=== PATIENT | male | born 1960 | race Caucasian/White ===

== ENCOUNTER 2016-10-05 06:40 | Emergency (ER) | payer MEDICAID ==
[~2016-10-05] VITALS: Ht 190.5 cm; Wt 94.3 kg
[~2016-10-05 06:40] MED LIST: GABA-338 PO; GLIM1TAB2 PO; LISI10TA7 PO; METF10002 PO
[2016-10-05 06:41] VITALS: Ht 190.5 cm; Wt 94.3 kg
--- OUTSIDE RECORDS SUMMARY | 2016-10-05 06:45 | XMS REPORT | Continuity of Care Document ---
Author Author [facility] Organization [facility] Address Unknown Phone Unavailable Allergies Active Description Code Type Severity Reaction Onset Reported/Identified Relationship to Patient Clinical Status Yes amitriptyline amitriptyline Drug Allergy Unknown UNKNOWN 09/20/2016 Yes duloxetine duloxetine Drug Allergy Unknown UNKNOWN 09/20/2016 Yes ketorolac ketorolac Drug Allergy Unknown UNKNOWN 09/20/2016 Yes pregabalin pregabalin Drug Allergy Unknown UNKNOWN 09/20/2016 Medications Problems Procedures Results Encounters ACCT No. Visit Date/Time Discharge Status Pt. Type Provider Facility Loc./Unit Complaint [id number] 09/20/2016 20:35:00 2016 21:29:00 DIS Emergency Shawna GARAY, Yani Velez [facility]
--- OUTSIDE RECORDS SUMMARY | 2016-10-05 06:45 | XMS REPORT | Continuity of Care Document ---
Author Author [facility] Organization [facility] Address Unknown Phone Unavailable Care Team Providers Care Shovel Logger Name Role Phone OTHER Primary Care Physician [phone] Insurance Providers Guarantor Bárbara Cantu Address [address] [place] [address] Email DENIED 09-17-16 Payer Medicaid Out Of State Policy Number [id number] Subscriber's Name Bárbara Cantu Relationship 18 Self Chief Complaint and Reason for Visit Chief Complaint Lower Extremity Pain Reason for Visit [id number] Problems Past Problems Medical Problem Onset Date 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 Unknown Medications Current Home Medications Medication Dose Units Route Directions Days Qty Instructions Start Date Gabapentin 300 Mg Capsule 3 Cap Oral Three Times A Day 09/17/16 Glimepiride 1 Mg Tablet 4 Mg Oral Give With Breakfast BEST TAKEN WITH BREAKFAST. 09/17/16 Lisinopril 10 Mg Tablet 10 Mg Oral Daily for Hypertension Metformin Hcl 1,000 Mg Tablet 1 Tab Oral Twice Daily With Meals Take one tablet, by mouth, twice daily with meals 09/17/16 Social History Query Response Start Date Stop Date Smoking Status Current every day smoker Hospital Discharge Instructions No hospital discharge instructions. Plan of Care Discharge Date 09/17/16 11:18pm Disposition 01 DISCHARGED HOME, SELF-CARE Condition at Discharge Stable Instructions/Education Provided Diabetic Peripheral Neuropathy (ED) Prescriptions See Medication Section Referrals OTHER Functional Status No functional status results. Allergies, Adverse Reactions, Alerts Allergen Type Severity Reaction Status Last Updated Amitriptyline Allergy Unknown Active 09/17/16 Ketorolac Allergy Unknown Active 09/17/16 Duloxetine Allergy Unknown Active 09/17/16 Pregabalin Allergy Unknown Active 09/17/16 Immunizations Query Response on File Recorded Date/Time Influenza Vaccine Hx JULY 2015 09/17/16 11:00pm Vital Signs Acute Vital Signs Vital Response Date/Time Temperature (Fahrenheit) 98.2 deg F (96.8 - 99.1) 09/17/2016 11:18pm Temperature (Calculated Celsius) 36.17579 degrees C (36.0 - 37.3) 09/17/2016 11:18pm Pulse Rate (adult) 102 bpm (60 - 100) 09/17/2016 11:18pm Respiratory Rate 18 breaths/min (10 - 20) 09/17/2016 11:18pm O2 Sat by Pulse Oximetry 97 % (90 - 100) 09/17/2016 11:18pm Blood Pressure 150/98 mm Hg 09/17/2016 11:18pm Height (Feet) 6 feet 09/17/2016 9:43pm Height (Inches) 3.00 inches 09/17/2016 9:43pm Weight (Kilograms) 103.600 kg 09/17/2016 9:43pm Body Mass Index (BMI) 28.0 09/17/2016 9:43pm Results No known relevant diagnostic tests, laboratory data and/or discharge summary. Procedures No known history of procedures. Encounters Encounter Location Arrival/Admit Date Discharge/Depart Date Attending Provider Departed Emergency Room [facility] 09/17/16 9:11pm 09/17/16 11: 18pm DANIELA CONTEH DO Recent Diagnosis
--- OUTSIDE RECORDS SUMMARY | 2016-10-05 07:07 | XMS REPORT | Continuity of Care Document ---
Author Author [facility] Organization [facility] Address Unknown Phone Unavailable Allergies Active Description [...] Status Pt. Type Provider Facility Loc./Unit Complaint [id number] 09/20/2016 20:35:00 2016 21:29:00 DIS Emergency Shawna GARAY, Yani Velez [facility]
--- NOTE | 2016-10-05 07:10 | NUR ---
PROVIDER DR. Daiana SOSA IN ROOM WITH PT.
[2016-10-05] MEDS ORDERED: HYDROMORPHONE 2mg/ml INJECTION IM ONE (07:15)
[2016-10-05] MEDS ORDERED: PROMETHAZINE 25 MG INJECTION IM ONE (07:15)
--- NOTE | 2016-10-05 07:15 | ERPDOC ---
Departure Disposition Decision Date: Oct 05, 2016 Disposition Decision Time: 07:15 Disposition: 01 DISCHARGED HOME, SELF-CARE Impression Impression Impression: Primary Impression: Diabetic neuropathy associated with type 2 diabetes mellitus Diabetes mellitus complication detail: diabetic polyneuropathy Qualified Codes: E11.42 - Type 2 diabetes mellitus with diabetic polyneuropathy Additional Impression: Degenerative disc disease, lumbar Severity: Moderate Condition: Stable Seen By: Physician only Referrals: OTHER (PCP) 1 Week Patient Instructions: Diabetic Peripheral Neuropathy (ED) Problems/Meds/Labs Reviewed?: Yes Medications reviewed and manag: Yes Additional Instructions: Home to rest. Fill prescription for [place] and use as needed. If you run out before your card comes, call or see your new primary care doctor about getting more medication -- the ER is not designed to provide keno terminal operator pain medications. Follow up care ordered?: Yes Mental Status: Alert, Oriented Scripts Hydrocodone/Acetaminophen ([place] 10-325 Tablet) 10-325 Tablet 1 TAB PO TID, #21 TAB 0 Refills Prov: MARGARETH SOSA MD 10/05/16 HPI - Lower Extremity General Chief Complaint: Lower Extremity Pain Stated Complaint: PAIN IN LEGS AND FEET Time Seen by Provider: 06:59 Source: patient, RN notes reviewed, old records Exam Limitations: no limitations HPI - Lower Extremity Initial Comments This patient with known history of diabetic neuropathy comes in to the ER complaining of severe pain in his lower legs and feet related to the neuropathy. He has recently moved to this area from [place] and is waiting for his Medicaid card to come through for [place]. He was seen here on 09/17/16 and then saw a new PCP -- Dr Hardwick on 09/21 and was given #21 [place] 10/325 at that time. He tried to make them last but is out. He did not know that getting a Medicaid card for [place] would take so long. He ran out of the last [place] 2 days ago and was unable to sleep at all the last 2 nights. Occurred At: home Onset/Timing: Gradual Pain/Severity Scale: Now & Worst: 10/10 Modifying Factors/Context: IMPROVES WITH: pain medication Hx of Similar Symptoms: Yes Quality: burning Allergies: Coded Allergies: amitriptyline (Verified Allergy, Unknown, 10/05/16) duloxetine (Verified Allergy, Unknown, 10/05/16) ketorolac (Verified Allergy, Unknown, 10/05/16) pregabalin (Verified Allergy, Unknown, 10/05/16) Past History Past Medical History Metabolic: diabetes, hypertension Cardiac: CAD Neurological: neuropathy Musculoskeletal: back pain Surgical History General: hernia, other (nose/cleft palate repair) Joint: other Social History Smoking Status: Current every day smoker Alcohol Intake: occasionally Sexuality: female partner Current Occupational Status: unemployed Record Review Pertinent history updated: Yes Review of Systems Constitutional Constitutional: appetite decrease, insomnia, night sweats, see HPI Eyes General: DENIES: pain Lids/Accessories: DENIES: erythema Vision: DENIES: blurring ENMT Ears: DENIES: pain Hearing: DENIES: hearing loss Balance: DENIES: vertigo Sinuses: DENIES: congestion, rhinorrhea Mouth/Throat: DENIES: sore throat Teeth: DENIES: pain Cardiovascular Cardiac: DENIES: chest pain Rhythm/Rate: DENIES: palpitations Vascular: DENIES: pedal edema, unilateral swelling Pulmonary Respiratory: DENIES: cough, dyspnea, sputum GI Upper Abdomen: DENIES: heartburn/indigestion, nausea, vomiting Lower Abdomen: DENIES: blood in stool, constipation, diarrhea General: DENIES: dysuria, hematuria Male: DENIES: hesitancy Musculoskeletal General: pain, see HPI, DENIES: joint pain Integumentary Skin: DENIES: itching, rash Neurological General: numbness, see HPI, tingling Psychiatric Psychiatric: DENIES: anxiety, depression Endocrine Endocrine: DENIES: heat/cold intolerance Hematologic/Lymphatic Hematologic/Lymphatic: DENIES: anemia, easy bruising Allergic/Immunological Allergic/Immunoligical: DENIES: hives All other Systems All Other Systems: Reviewed and Negative Physical Exam General General Nourishment: well nourished, well developed, appears stated age, adult General Body Habitus: well groomed Vitals and Pain First Documented Vital Signs Date Time Temp Pulse Resp B/P Pulse Ox O2 Delivery O2 Flow Rate FiO2 10/05/16 06:41 98.2 98 14 163/103 96 10/05/16 08:08 Room Air Weight: Kilograms: 94.300 Height (feet): 6 Height (inches): 3.00 Triage Pain Scale: RN VS reviewed by Provider: Yes Comments moderate distress Normal Exams: Head: Normocephalic w/o trauma Eyes: Pupils are PERRLA w/ EOMI, No scleral icterus, irritation, or foreign bodies noted ENMT: No facial trauma, nasal exudates, pharyngeal erythema, or exudates are noted Dental: No fractured, loose, or missing teeth noted Neck: Full range of motion, without adenopathy, JVD, bruits or thyromegaly Chest/Resp: Clear all raymundo, with good airflow, and symmetry bilaterally CV: Regular rate and rhythm, without murmur or gallop, Pulses 2+ all extremities, capillary refill, <2 seconds all ext., no pedal edema noted Abdomen: Bowel sounds positive, soft, non-tender, non-distended, no hepatosplenomegaly, masses or bruits noted Musculoskeletal: or deformity noted, good range of motion, all extremities Integumentary: No rashes, hives, or bruising noted, hair and nails, without abnormality Neurologic: Patient is alert, and oriented, cranial nerves Psychiatric: Patient exhibits, appropriate attention Neurologic (brief) Comments decreased sensation in stocking distribution in legs, has frequent myoclonic type jerks Psychiatric (brief) Comments anxious Differential Diagnoses Considering: Other Progress Results/Orders Orders Procedure Category Date Status Time Hydromorphone PHA 10/05/16 Complete (Dilaudid) 07:15 Promethazine PHA 10/05/16 Complete (Phenergan) 07:15 Medications Current ED Medications Hydromorphone HCl (Dilaudid) 1 mg O ONCE IM Last administered on 10/05/16 07: 38; Start 10/05/16 at 07:15; Stop 10/05/16 at 07:17; Status DC Promethazine HCl (Phenergan) 25 mg O ONCE IM Last administered on 10/05/16 07 :15; Start 10/05/16 at 07:15; Stop 10/05/16 at 07:17; Status DC Progress Progress Patient asked if he could have some parenteral narcotics in ER. Will give one dose. Explained to patient that we are not here to be a pain management clinic and that he should go through the PCP he saw if he has further needs for pain meds prior to the medical card arriving. MARGARETH SOSA MD Oct 05, 2016 07:15
[2016-10-05] MEDS ORDERED: HYDR-4078 PO ×2 (07:22→07:25)
--- NOTE | 2016-10-05 08:00 | NUR ---
PT STATUS PT REPORTS PAIN IS CURRENTLY A 6/10 AND HE IS FEELING VERY SLEEPY AND READY TO GO HOME. PT'S BP HAS DECREASED SINCE ARRIVAL AND PT STATES HE WILL TAKE HIS LISINOPRIL ONCE HE GETS HOME.
[2016-10-05 08:08] VITALS: BP 149/96; PULSE 78; TEMP 97.2; O2SAT 98
[2016-10-05 08:10] VITALS: RESP 16
== END 2016-10-05 08:10 | disposition home or self-care (01) ==
LOC: ED 06:40
DX: E11.42 Type 2 diabetes mellitus with diabetic polyneuropathy (principal); M51.36 Other intervertebral disc degeneration, lumbar region; Z79.84 Long term (current) use of oral hypoglycemic drugs
CPT/HCPCS: 96372; 99283; J1170; J2550

== ENCOUNTER 2016-10-11 21:41 | Emergency (ER) | payer MEDICAID ==
[~2016-10-11] VITALS: Ht 190.5 cm; Wt 102.5 kg
[~2016-10-11 21:41] MED LIST changes: +HYDR-4078 PO; -METF10002 PO
--- OUTSIDE RECORDS SUMMARY | 2016-10-11 21:46 | XMS REPORT | Continuity of Care Document ---
Author Author [facility] Organization [facility] Address Unknown Phone Unavailable Care Team Providers Care Auger Mill Operator Name Role Phone OTHER Primary Care Physician [phone] Insurance Providers Guarantor Bárbara Cantu Address [address] [place] [address] Email DENIED 10-05-16 Payer Medicaid Out Of State Policy Number [id number] Subscriber's Name Bárbara Cantu Relationship 18 Self Advance Directives Directive Response Recorded Date/Time Advanced Directives Type None 10/05/16 6:41am Chief Complaint and Reason for Visit Chief Complaint Lower Extremity Pain Reason for Visit Diabetic neuropathy associated with type 2 diabetes mellitus [id number] Problems Past Problems Medical Problem Onset Date Degenerative disc disease, lumbar Unknown 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 Unknown Diabetic neuropathy associated with type 2 diabetes mellitus Unknown Medications Current Home Medications Medication Dose Units Route Directions Days Qty Instructions Start Date Gabapentin 300 Mg Capsule 3 Cap Oral Three Times A Day 09/17/16 Glimepiride 1 Mg Tablet 4 Mg Oral Give With Breakfast BEST TAKEN WITH BREAKFAST. 09/17/16 Hydrocodone/Acetaminophen ([place] 10-325 Tablet) 10-325 Tablet 1 Tab Oral Three Times A Day 10/05/16 Hydrocodone/Acetaminophen ([place] 10-325 Tablet) 10-325 Tablet 1 Tab Oral Three Times A Day 21 Tablet 10/05/16 Lisinopril 10 Mg Tablet 10 Mg Oral Daily for Hypertension Social History Social History Problem Response Recorded Date/Time Onset Date Status Chewing Tobacco Status No 10/05/2016 6:50am Not Applicable Not Applicable Hx Substance Use No 10/05/2016 6:50am Not Applicable Not Applicable Hx Alcohol Use Yes 10/05/2016 6:50am Not Applicable Not Applicable Query Response Start Date Stop Date Smoking Status Current every day smoker Hospital Discharge Instructions No hospital discharge instructions. Plan of Care Discharge Date 10/05/16 8:10am Disposition 01 DISCHARGED HOME, SELF-CARE Condition at Discharge Stable Instructions/Education Provided Diabetic Peripheral Neuropathy (ED) Prescriptions See Medication Section Referrals BRENDAN NEWSOME Address: [address] [place] [address] [address] [facility] [place] [address] OTHER Order Date: 1 Week Note: Additional Instructions/Education Home to rest. Fill prescription for [place] and use as needed. If you run out before your card comes, call or see your new primary care doctor about getting more medication -- the ER is not designed to provide superintendent container terminal pain medications. Care Plan and Goals Physician Care Plan Problem:diabetic neuropathy, lumbar disc disease Goal: Follow up with primary care provider Instructions: Take medications and follow care plan as discussed/written Functional Status No functional status results. Allergies, Adverse Reactions, Alerts Allergen Type Severity Reaction Status Last Updated Amitriptyline Allergy Unknown Active 10/05/16 Ketorolac Allergy Unknown Active 10/05/16 Duloxetine Allergy Unknown Active 10/05/16 Pregabalin Allergy Unknown Active 10/05/16 Immunizations Query Response on File Recorded Date/Time Influenza Vaccine Hx JULY 2015 10/05/16 6:50am Vital Signs Acute Vital Signs Vital Response Date/Time Temperature (Fahrenheit) 97.2 deg F (96.8 - 99.1) 10/05/2016 8:08am Temperature (Calculated Celsius) 36.49457 degrees C (36.0 - 37.3) 10/05/2016 8:08am Pulse Rate (adult) 78 bpm (60 - 100) 10/05/2016 8:08am Respiratory Rate 16 breaths/min (10 - 20) 10/05/2016 8:08am O2 Sat by Pulse Oximetry 98 % (90 - 100) 10/05/2016 8:08am Blood Pressure 149/96 mm Hg 10/05/2016 8:08am Height (Feet) 6 feet 10/05/2016 6:41am Height (Inches) 3.00 inches 10/05/2016 6:41am Weight (Kilograms) 94.300 kg 10/05/2016 6:41am Body Mass Index (BMI) 25.0 10/05/2016 6:41am Results No known relevant diagnostic tests, laboratory data and/or discharge summary. Procedures Procedure Status Date Provider(s) Emergency dept visit Completed 09/17/16 Encounters Encounter Location Arrival/Admit Date Discharge/Depart Date Attending Provider Departed Emergency Room [facility] 10/05/16 6:40am 10/05/16 8: 10am MARGARETH SOSA MD Departed Emergency Room [facility] 09/17/16 9:11pm 09/17/16 11: 18pm DANIELA CONTEH DO Recent Diagnosis
--- OUTSIDE RECORDS SUMMARY | 2016-10-11 21:46 | XMS REPORT | Continuity of Care Document ---
Author Author [facility] Organization [facility] Address Unknown Phone Unavailable Allergies [...] Status Pt. Type Provider Facility Loc./Unit Complaint [id number] 09/20/2016 20:35:00 2016 21:29:00 DIS Emergency Shawna GARAY, Yani Velez [facility]
[2016-10-11 22:01] VITALS: Ht 190.5 cm; Wt 102.5 kg
[2016-10-11] MEDS ORDERED: LIDO700A3 TD (22:21)
[2016-10-11] MEDS ORDERED: THIO50CA PO (22:22)
--- NOTE | 2016-10-11 22:22 | ERPDOC ---
Departure Disposition Decision Date: Oct 11, 2016 Disposition Decision Time: 22:31 Disposition: 01 DISCHARGED HOME, SELF-CARE Impression Impression Impression: Primary Impression: Diabetic neuropathy Diabetes mellitus type: type 2 Diabetes mellitus complication detail: diabetic autonomic neuropathy Qualified Codes: E11.43 - Type 2 diabetes mellitus with diabetic autonomic (poly)neuropathy Additional Impression: Sciatica of left side Severity: Severe Condition: Improved Seen By: Physician only Referrals: OTHER (PCP) BRENDAN HARDWICK (Family) 1 Week Patient Instructions: Diabetic Peripheral Neuropathy (ED), Sciatica (ED) Problems/Meds/Labs Reviewed?: Yes Medications reviewed and manag: Yes Additional Instructions: Take the norco as previously for your neuropathy. ALA at 600mg/day has proven effective at treating diabetic neuropathic pain, as has lidocaine patches. Use them as directed to help with your symptoms. Follow up with Dr. Hardwick and with pain management. Follow up care ordered?: Yes Mental Status: Alert, Oriented Scripts Hydrocodone/Acetaminophen ([place] 10-325 Tablet) 10-325 Tablet 1 TAB PO Q8HPRN Y for PAIN, #21 TAB Prov: NOVEMBERDANIELA DO 10/11/16 Alpha Lipoic Acid (Alpha-Lipoic Acid) 50 Mg Capsule 600 MG PO DAILY for 30 Days Prov: NOVEMBERDANIELA DO 10/11/16 Lidocaine (Lidoderm) 1 Each Adh..patch 1 PATCH TD DAILY for 30 Days Prov: DANIELA CONTEH DO 10/11/16 HPI - Lower Extremity General Chief Complaint: Lower Extremity Pain Stated Complaint: LEG PAIN Time Seen by Provider: 22:30 Source: patient, family Exam Limitations: no limitations HPI - Lower Extremity Initial Comments 56yo [facility] and left posterior thigh pain. Pt has had chronic, progressive b/l LE diabetic neuropathy for several years now. In addition, he has left-sided sciatica tonight. Pt was seen 8 days ago in this ER and given 7 day's worth of narcotics for his chronic pain. Pain is intractable, and pt would like relief. Pt is well-known to this ER. He moved here from [place] two months ago. In [place] , he was evaluated by the only provider in a large area who took medicaid. He has a transfer into Medicaid to [place], but it has not been processed yet. He has seen Dr. Hardwick, and he has been referred to pain mgmt, but he will not be seen until his Medicaid transfers. Pt is allergic to duloxetine, elavil, and pregabalin (causes hemibalismus). NSAIDs are tolerable, but don't improve his sx. Occurred At: home Onset/Timing: Constant Duration: other Pain/Severity Scale: Now & Worst: 8/10 Pain/Injury Location: left hip, bilateral leg, bilateral foot, bilateral ankle Method of Injury: other Modifying Factors/Context: IMPROVES WITH: pain medication, WORSE WITH: jarring , movement Hx of Similar Symptoms: Yes Quality: burning Associated Symptoms: numbness Allergies: Coded Allergies: amitriptyline (Verified Allergy, Unknown, 10/11/16) duloxetine (Verified Allergy, Unknown, 10/11/16) ketorolac (Verified Allergy, Unknown, 10/11/16) pregabalin (Verified Allergy, Unknown, 10/11/16) Past History Patient Medical History (1) Diabetic neuropathy (2) Sciatica of left side Past Medical History Metabolic: diabetes, hypertension Cardiac: CAD Neurological: neuropathy Musculoskeletal: back pain Surgical History General: hernia, other Joint: other Social History Alcohol Intake: occasionally Sexuality: female partner Current Occupational Status: unemployed Review of Systems Musculoskeletal General: pain, see HPI All other Systems All Other Systems: Reviewed and Negative Physical Exam General General Nourishment: well nourished, well developed, appears stated age, adult , thin, acute distress General Body Habitus: well groomed Vitals and Pain Weight: Kilograms: Height (feet): 6 Height (inches): 3.00 Triage Pain Scale: RN VS reviewed by Provider: Yes Supervisory Exam Body Habitus: well groomed Head: atraumatic Eyes: PERRL Nares: no exudate Neck: trachea midline Chest: symmetric Abdomen: non-distended Musculoskeletal: no deformity or atrophy Neurological: no abnormal movements Skin: pink, dry Psychological: alert, appropriate Differential Diagnoses Considering: Other (Diabetic neuropathy, sciatica, drug-seeking) Progress Results/Orders Orders Procedure Category Date Status Time Hydrocodone/Acetaminophen PHA 10/11/16 Complete ([place] 10/325) 22:45 Case Management CONS 10/11/16 Transmitted Consult 22:50 Medications Current ED Medications Acetaminophen/ Hydrocodone Bitart ([place] 10/325) 1 tab O ONCE PO Last administered on 10/11/16t 22:48; Start 10/11/16 at 22:45; Stop 10/11/16 at 22:46; Status DC Progress Progress Long discussion held with pt regarding dx, medicaid, past medications, allergies , etc. Will prescribe short course of narcotics along with ALA (mod evidence for efficacy) and lidoderm patches (also mod evidence of efficacy). F/u with Dr. Hardwick, and referral to social work to help pt obtain primary care for his chronic condition. DANIELA CONTEH DO Oct 11, 2016 22:22
[2016-10-11] MEDS ORDERED: HYDR-4078 PO (22:30)
[2016-10-11] MEDS ORDERED: METF10002 PO (22:32)
[2016-10-11] MEDS ORDERED: GABA-329 PO (22:35)
[2016-10-11 22:50] VITALS: BP 139/89; PULSE 79; RESP 16; TEMP 97.9; O2SAT 98
--- OUTSIDE RECORDS SUMMARY | 2016-10-11 23:03 | XMS REPORT | Continuity of Care Document ---
Author Author [facility] Organization [facility] Address Unknown Phone Unavailable Allergies Active Description [...] Status Pt. Type Provider Facility Loc./Unit Complaint [id number] 09/20/2016 20:35:00 2016 21:29:00 DIS Emergency Shawna GARAY, Yani Velez [facility]
== END 2016-10-11 22:50 | disposition home or self-care (01) ==
LOC: ED 21:41
DX: E11.43 Type 2 diabetes mellitus with diabetic autonomic (poly)neuropathy (principal); M54.32 Sciatica, left side; Z79.84 Long term (current) use of oral hypoglycemic drugs

== ENCOUNTER 2016-10-18 21:03 | Emergency (ER) | payer MEDICAID ==
[~2016-10-18] VITALS: Ht 190.5 cm; Wt 103.6 kg
[~2016-10-18 21:03] MED LIST changes: +GABA-329 PO; -GABA-338 PO; +LIDO700A3 TD; +METF10002 PO; +THIO50CA PO
--- OUTSIDE RECORDS SUMMARY | 2016-10-18 21:07 | XMS REPORT | Continuity of Care Document ---
Author Author [facility] Organization [facility] Address Unknown Phone Unavailable Allergies [...] Status Pt. Type Provider Facility Loc./Unit Complaint [id number] 10/11/2016 14:02:00 2016 15:16:00 DIS Emergency Hunter Hernandez DO [facility] [id number] 09/20/2016 20:35:00 2016 21:29:00 DIS Emergency Shawna GARAY, Yani [facility]
--- OUTSIDE RECORDS SUMMARY | 2016-10-18 21:07 | XMS REPORT | Continuity of Care Document ---
Author Author [facility] Organization [facility] Address Unknown Phone Unavailable Care Team Providers Care Acetylene Burner Name Role Phone OTHER Primary Care Physician [phone] Insurance Providers Guarantor Bárbara Cantu Address [address] [facility] [address] [place] [address] Email DENIED 10-11-16 Payer Medicaid Out Of State Policy Number [id number] Subscriber's Name Bárbara Cantu Relationship 18 Self Advance Directives Directive Response Recorded Date/Time Advanced Directives Type None 10/11/16 10:01pm Chief Complaint and Reason for Visit Chief Complaint Lower Extremity Pain Reason for Visit Sciatica of left side Diabetic neuropathy Problems Active Problems Medical Problem Onset Date Status Diabetic neuropathy Unknown Acute Sciatica of left side Unknown Acute Past Problems Medical Problem Onset Date Degenerative disc disease, lumbar Unknown 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 09/17/16 Hydrocodone/Acetaminophen ([place] 10-325 Tablet) 10-325 Tablet 1 Tab Oral Three Times A Day 10/05/16 Hydrocodone/Acetaminophen ([place] 10-325 Tablet) 10-325 Tablet 1 Tab Oral Three Times A Day 21 Tablet 10/05/16 Hydrocodone/Acetaminophen ([place] 10-325 Tablet) 10-325 Tablet 1 Tab Oral Every 8 Hours Prn as needed for Pain 21 Tablet 10/11/16 Lidocaine (Lidoderm) 1 Each Adh..patch 1 Patch Transderm Daily 30 Days 10/11/16 Lisinopril 10 Mg Tablet 10 Mg Oral Daily for Hypertension Metformin Hcl 1,000 Mg Tablet 1 Tab Oral Twice Daily With Meals Take one tablet, by mouth, twice daily with meals 10/11/16 Past Home Medications Medication Directions Ordered Status Gabapentin 300 Mg Capsule, 3 Cap Oral Three Times A Day 09/17/16 Discontinued Social History Social History Problem Response Recorded Date/Time Onset Date Status Hx Substance Use No 10/11/2016 10:37pm Not Applicable Not Applicable Hx Alcohol Use Yes 10/11/2016 10:37pm Not Applicable Not Applicable Query Response Start Date Stop Date Smoking Status Heavy Smoker Hospital Discharge Instructions No hospital discharge instructions. Plan of Care Discharge Date 10/11/16 10:50pm Disposition 01 DISCHARGED HOME, SELF-CARE Condition at Discharge Improved Instructions/Education Provided Sciatica (ED) Diabetic Peripheral Neuropathy (ED) Prescriptions See Medication Section Referrals OTHER Note: BRENDAN HARDWICK Order Date: 1 Week Address: [address] [place] [address] [address] [facility] [place] [address] Note: Additional Instructions/Education Take the norco as previously for your neuropathy. ALA at 600mg/day has proven effective at treating diabetic neuropathic pain, as has lidocaine patches. Use them as directed to help with your symptoms. Follow up with Dr. Hardwick and with pain management. Care Plan and Goals Physician Care Plan Problem: Diabetic neuropathy Goal: Follow up with primary care provider Instructions: Take medications and follow care plan as discussed/written Functional Status No functional status results. Allergies, Adverse Reactions, Alerts Allergen Type Severity Reaction Status Last Updated Amitriptyline Allergy Unknown Active 10/11/16 Ketorolac Allergy Unknown Active 10/11/16 Duloxetine Allergy Unknown Active 10/11/16 Pregabalin Allergy Unknown Active 10/11/16 Immunizations Query Response on File Recorded Date/Time Influenza Vaccine Hx JULY 2015 10/11/16 10:45pm Vital Signs Acute Vital Signs Vital Response Date/Time Temperature (Fahrenheit) 97.9 deg F (96.8 - 99.1) 10/11/2016 10:50pm Temperature (Calculated Celsius) 36.91647 degrees C (36.0 - 37.3) 10/11/2016 10:50pm Pulse Rate (adult) 79 bpm (60 - 100) 10/11/2016 10:50pm Respiratory Rate 16 breaths/min (10 - 20) 10/11/2016 10:50pm O2 Sat by Pulse Oximetry 98 % (90 - 100) 10/11/2016 10:50pm Blood Pressure 139/89 mm Hg 10/11/2016 10:50pm Height (Feet) 6 feet 10/11/2016 10:01pm Height (Inches) 3.00 inches 10/11/2016 10:01pm Weight (Kilograms) 102.500 kg 10/11/2016 10:01pm Body Mass Index (BMI) 28.0 10/11/2016 10:01pm Results No known relevant diagnostic tests, laboratory data and/or discharge summary. Procedures Procedure Status Date Provider(s) Emergency dept visit Completed 09/17/16 Ther/proph/diag inj sc/im Completed 10/05/16 Ther/proph/diag inj sc/im Completed 10/05/16 Emergency dept visit Completed 10/05/16 [id number]"INJECTION, HYDROMORPHONE, UP TO 4 MG" Completed 10/05/16 [id number]"INJECTION, PROMETHAZINE HCL, UP TO 50 MG" Completed 10/05/16 Encounters Encounter Location Arrival/Admit Date Discharge/Depart Date Attending Provider Registered Emergency Room [facility] 10/11/16 9:41pm DANIELA CONTEH DO Departed Emergency Room [facility] 10/05/16 6:40am 10/05/16 8: 10am MARGARETH OSSA MD Departed Emergency Room [facility] 09/17/16 9:11pm 09/17/16 11: 18pm DANIELA CONTEH DO Recent Diagnosis
[2016-10-18 21:50] VITALS: TEMP 98; Ht 190.5 cm; Wt 103.6 kg
--- NOTE | 2016-10-18 21:55 | NUR ---
PROVIDER TYRONE JAMESON AT BED SIDE W/ PT.
[2016-10-18] MEDS ORDERED: HYDROMORPHONE 2mg/ml INJECTION IM ONE (22:00)
--- OUTSIDE RECORDS SUMMARY | 2016-10-18 22:17 | XMS REPORT | Continuity of Care Document ---
Author Author [facility] Organization [facility] Address Unknown Phone Unavailable Allergies Active [...] Status Pt. Type Provider Facility Loc./Unit Complaint [id number] 10/11/2016 14:02:00 2016 15:16:00 DIS Emergency Hunter Hernandez DO [facility] [id number] 09/20/2016 20:35:00 2016 21:29:00 DIS Emergency Shawna GARAY, Yani [facility]
--- NOTE | 2016-10-18 23:03 | ERPDOC ---
Departure Disposition Decision Date: Oct 18, 2016 Disposition Decision Time: 23:02 Disposition: 01 DISCHARGED HOME, SELF-CARE Impression Impression Impression: Primary Impression: Neuropathy Additional Impression: Sciatica Laterality: left Qualified Codes: M54.32 - Sciatica, left side Severity: Moderate Condition: Stable Seen By: Mid-level only Referrals: OTHER (PCP) BRENDAN HARDWICK (Family) Patient Instructions: Diabetic Peripheral Neuropathy (ED), Sciatica (ED) Problems/Meds/Labs Reviewed?: Yes Medications reviewed and manag: Yes Additional Instructions: I do want you to continue your medications as you were taking at home. May try the Prednisone as prescribed for pain to help with the sciatica. Use the Gabapentin as prescribed, the ALA, and the lidoderm patches as well. I do encourage you to follow up with Dr Hardwick for reevaluation of your chronic pain as well. Follow up care ordered?: Yes Mental Status: Alert Scripts Prednisone (Prednisone) 20 Mg Tablet 20 MG PO BIDWM, #10 TAB 0 Refills Take 1 tablet, by mouth, 2 times a day with meals. Prov: SAYDA SOLORIORenetta Hdz [employer]ER 10/18/16 HPI - Lower Extremity General Chief Complaint: Lower Extremity Pain Stated Complaint: PAINFUL LEG AND FEET Time Seen by Provider: 21:49 Source: patient Exam Limitations: no limitations HPI - Lower Extremity Initial Comments He presents to [facility] for management of his chronic pain. He has a history of neuropathy and also sciatica. Sciatica pain is on the left side and radiates down to the left thigh and buttock. Has recently moved here from [place] and states that he is waiting for his Medicaid to kick in in [place] before he can get a referral to pain management. He has been evaluated in our Er several times and has been given Rx for [place] which he states that he has had to use more often than the every 8 hours. He also does have Gabapentin at home and was advised at his last visit to start taking ALA and use some Lidoderm patches. He states that he did start the ALA. He is here in [facility] due to increased severity of his chronic pain. He has had an appointment with Dr Hardwick a PCP and has referral onto pain management but will not be able to do this until his Medicaid kicks in. Occurred At: home Onset/Timing: Gradual, other (chronic) Duration: other (Chronic) Severity: moderate Pain/Injury Location: bilateral leg, left thigh Hx of Similar Symptoms: No Associated Symptoms: numbness Allergies: Coded Allergies: amitriptyline (Verified Allergy, Unknown, 10/11/16) duloxetine (Verified Allergy, Unknown, 10/11/16) ketorolac (Verified Allergy, Unknown, 10/11/16) pregabalin (Verified Allergy, Unknown, 10/11/16) Past History Past Medical History Metabolic: diabetes, hypertension Cardiac: CAD Neurological: neuropathy Musculoskeletal: back pain Surgical History General: hernia, other Joint: other Social History Alcohol Intake: occasionally Sexuality: female partner Current Occupational Status: unemployed Review of Systems Constitutional Constitutional: DENIES: chills, dizziness, fatigue, fever, weakness Cardiovascular Cardiac: DENIES: chest pain, orthopnea Rhythm/Rate: DENIES: irregular beat, palpitations Pulmonary Respiratory: DENIES: cough, dyspnea, sputum, tachypnea GI Upper Abdomen: DENIES: nausea, pain, vomiting Lower Abdomen: DENIES: constipation, diarrhea, pain General: DENIES: dysuria, frequency, incontinence, urgency Musculoskeletal General: pain (left thigh and BLE/feet), DENIES: joint pain, joint swelling, tenderness, weakness Integumentary Skin: DENIES: rash Neurological General: numbness (BLE), DENIES: headache, tingling, weakness Physical Exam General General Nourishment: well nourished, well developed, appears stated age, adult , acute distress (Is moving about the bed in pain) General Body Habitus: well groomed Vitals and Pain Weight: Kilograms: Height (feet): 6 Height (inches): 3.00 Triage Pain Scale: RN VS reviewed by Provider: Yes Normal Exams: Neck: Full range of motion, without adenopathy, JVD, bruits or thyromegaly Chest/Resp: Clear all raymnudo, with good airflow, and symmetry bilaterally CV: Regular rate and rhythm, without murmur or gallop, Pulses 2+ all extremities, capillary refill, <2 seconds all ext., no pedal edema noted Abdomen: Bowel sounds positive, soft, non-tender, non-distended, no hepatosplenomegaly, masses or bruits noted Lymphatic: No lymphadenopathy, or lymphedema noted Integumentary: No rashes, hives, or bruising noted Neurologic: Patient is alert, and oriented Psychiatric: Patient exhibits, appropriate attention, emotion and affect Musculoskeletal (brief) Musculoskeletal Brief: NOT FOUND: deformity, loss of motion (Does have full ROM of BLE and does move about easily on the cart. Sensation is decreased to BLE but he states that this is his baseline. Is noted to have strength in BLE of 5/5 at this time. ), tenderness Differential Diagnoses Considering: Other (diabetic neurophathy, sciatica, chronic pain) Progress Results/Orders Orders Procedure Category Date Status Time Hydromorphone PHA 10/18/16 Complete (Dilaudid) 22:00 Medications Current ED Medications Hydromorphone HCl (Dilaudid) 1 mg O ONCE IM ; Start 10/18/16 at 22:00; Stop 04/26 at 22:01; Status DC Progress Progress He does mention that he has spoken with a [facility] transitional [facility] and they can see him in follow up for his diabetes management but not his pain. They can also give him a pain management consult. He has been evaluated at [facility] as well as [facility]. I am going to have him continue with his medications at home and have him try some Prednisone for the sciatica pain. He is allergic to ketorolac. He is also here in [facility] with his significant other who is here for a chronic pain c/o as well and has moved here from [place] in the last 3 weeks. She also has been evaluated at [facility] and [facility] for pain c/o and so I am concerned at this time for some seeking behavior. Will have him contact Dr Hardwick for further pain medication management. SOHA SOLORIO APRN Oct 18, 2016 23:03
[2016-10-18] MEDS ORDERED: PRED20TA PO (23:07)
[2016-10-18 23:44] VITALS: BP 143/90; PULSE 105; RESP 28; O2SAT 91
--- NOTE | 2016-10-18 23:44 | NUR ---
DISCHARGE PT GIVEN INSTRUCTIONS FOR CONT CARE OF SCIATICA AND NEUROPATHY, PT VERBALIZED UNDERSTANDING AND SIGNED FORM, PT LEFT ER ALERT, AMBULATORY W/O ASSIST W/ CONDITION IMPROVED TO PAIN 5/10 VS CHARTED IN NO DISTRESS.
== END 2016-10-18 23:44 | disposition home or self-care (01) ==
LOC: ED 21:03
DX: G62.9 Polyneuropathy, unspecified (principal); M54.32 Sciatica, left side
CPT/HCPCS: 96372; 99283; J1170

== ENCOUNTER 2016-10-27 15:12 | Emergency (ER) | payer MEDICAID ==
[~2016-10-27] VITALS: Ht 190.5 cm; Wt 101.1 kg
[~2016-10-27 15:12] MED LIST changes: -LIDO700A3 TD; +PRED20TA PO
[2016-10-27 15:15] VITALS: Ht 190.5 cm; Wt 101.1 kg
--- OUTSIDE RECORDS SUMMARY | 2016-10-27 15:15 | XMS REPORT | Continuity of Care Document ---
Author Author [facility] Organization [facility] Address Unknown Phone Unavailable Allergies Active [...] Status Pt. Type Provider Facility Loc./Unit Complaint [id number] 10/11/2016 14:02:00 2016 15:16:00 DIS Emergency Hunter Hernandez DO [facility] [id number] 09/20/2016 20:35:00 2016 21:29:00 DIS Emergency Shawna GARAY, Yani [facility]
--- OUTSIDE RECORDS SUMMARY | 2016-10-27 15:15 | XMS REPORT | Continuity of Care Document ---
Author Author [facility] Organization [facility] Address Unknown Phone Unavailable Care Team Providers Care Visual Specialist Name Role Phone OTHER Primary Care Physician [phone] Insurance Providers Guarantor Bárbara Cantu Address [address] [facility] [address] [place] [address] Email DENIED 10-18-16 Payer Medicaid Out Of State Policy Number [id number] Subscriber's Name Bárbara Cantu Relationship 18 Self Advance Directives Directive Response Recorded Date/Time Advanced Directives Type None 10/18/16 9:50pm Chief Complaint and Reason for Visit Chief Complaint Lower Extremity Pain Reason for Visit Sciatica Neuropathy Problems Past Problems Medical Problem Onset Date Degenerative disc disease, lumbar Unknown Diabetic neuropathy Unknown 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 Unknown Diabetic neuropathy associated with type 2 diabetes mellitus Unknown Neuropathy Unknown Sciatica Unknown Sciatica of left side Unknown Medications Current Home Medications Medication Dose Units Route Directions Days Qty Instructions Start Date Alpha Lipoic Acid (Alpha-Lipoic Acid) 50 Mg Capsule 600 Mg Oral Daily 30 Days 10/11/16 Gabapentin 800 Mg Tablet 1 Tab Oral Four Times Daily 90 Tablet 09/24 Glimepiride 1 Mg Tablet 4 Mg Oral Give With Breakfast BEST TAKEN WITH BREAKFAST. 09/17/16 Hydrocodone/Acetaminophen ([place] 10-325 Tablet) 10-325 Tablet 1 Tab Oral Three Times A Day 10/05/16 Hydrocodone/Acetaminophen ([place] 10-325 Tablet) 10-325 Tablet 1 Tab Oral Three Times A Day 21 Tablet 10/05/16 Hydrocodone/Acetaminophen ([place] 10-325 Tablet) 10-325 Tablet 1 Tab Oral Every 8 Hours Prn as needed for Pain 21 Tablet 10/11/16 Lisinopril 10 Mg Tablet 10 Mg Oral Daily for Hypertension Metformin Hcl 1,000 Mg Tablet 1 Tab Oral Twice Daily With Meals Take one tablet, by mouth, twice daily with meals 10/11/16 Prednisone 20 Mg Tablet 20 Mg Oral Twice Daily With Meals 10 Tablet Take 1 tablet, by mouth, 2 times a day with meals. 10/18/16 Past Home Medications Medication Directions Ordered Status Gabapentin 300 Mg Capsule, 3 Cap Oral Three Times A Day 09/17/16 Discontinued Social History Social History Problem Response Recorded Date/Time Onset Date Status Chewing Tobacco Status No 10/18/2016 9:52pm Not Applicable Not Applicable Hx Substance Use No 10/18/2016 9:52pm Not Applicable Not Applicable Hx Alcohol Use Yes 10/18/2016 9:52pm Not Applicable Not Applicable Query Response Start Date Stop Date Smoking Status Current every day smoker Hospital Discharge Instructions No hospital discharge instructions. Plan of Care Discharge Date 10/18/16 11:44pm Disposition 01 DISCHARGED HOME, SELF-CARE Condition at Discharge Stable Instructions/Education Provided Sciatica (ED) Diabetic Peripheral Neuropathy (ED) Prescriptions See Medication Section Referrals BRENDAN HARDWICK Address: [address] [place] [address] [address] [facility] [address] OTHER Additional Instructions/Education I do want you to continue your medications as you were taking at home. May try the Prednisone as prescribed for pain to help with the sciatica. Use the Gabapentin as prescribed, the ALA, and the lidoderm patches as well. I do encourage you to follow up with Dr Hardwick for reevaluation of your chronic pain as well. Care Plan and Goals Physician Care Plan Problem:Diabetic Neuropathy Goal: Follow up with primary care provider Instructions: Take medications and follow care plan as discussed/written Functional Status No functional status results. Allergies, Adverse Reactions, Alerts Allergen Type Severity Reaction Status Last Updated Amitriptyline Allergy Unknown Active 10/11/16 Ketorolac Allergy Unknown Active 10/11/16 Duloxetine Allergy Unknown Active 10/11/16 Pregabalin Allergy Unknown Active 10/11/16 Immunizations Query Response on File Recorded Date/Time DTaP Vaccine History 201510/18/16 9:52pm Influenza Vaccine Hx 201610/18/16 9:52pm Tdap Vaccine Hx 201510/18/16 9:52pm Vital Signs Acute Vital Signs Vital Response Date/Time Temperature (Fahrenheit) 98.0 deg F (96.8 - 99.1) 10/18/2016 9:50pm Temperature (Calculated Celsius) 36.17616 degrees C (36.0 - 37.3) 10/18/2016 9:50pm Pulse Rate (adult) 105 bpm (60 - 100) 10/18/2016 11:44pm Respiratory Rate 28 breaths/min (10 - 20) 10/18/2016 11:44pm O2 Sat by Pulse Oximetry 91 % (90 - 100) 10/18/2016 11:44pm Blood Pressure 143/90 mm Hg 10/18/2016 11:44pm Height (Feet) 6 feet 10/18/2016 9:50pm Height (Inches) 3.00 inches 10/18/2016 9:50pm Weight (Kilograms) 103.600 kg 10/18/2016 9:50pm Body Mass Index (BMI) 28.0 10/18/2016 9:50pm Results No known relevant diagnostic tests, laboratory data and/or discharge summary. Procedures Procedure Status Date Provider(s) Emergency dept visit Completed 09/17/16 Ther/proph/diag inj sc/im Completed 10/05/16 Ther/proph/diag inj sc/im Completed 10/05/16 Emergency dept visit Completed 10/05/16 [id number]"INJECTION, HYDROMORPHONE, UP TO 4 MG" Completed 10/05/16 [id number]"INJECTION, PROMETHAZINE HCL, UP TO 50 MG" Completed 10/05/16 Emergency dept visit Completed 10/11/16 Encounters Encounter Location Arrival/Admit Date Discharge/Depart Date Attending Provider Departed Emergency Room [facility] 10/18/16 9:03pm 10/18/16 11: 44pm ROME KIM MD Departed Emergency Room [facility] 10/11/16 9:41pm 10/11/16 10: 50pm DANIELA CONTEH DO Departed Emergency Room [facility] 10/05/16 6:40am 10/05/16 8: 10am MARGARETH SOSA MD Departed Emergency Room [facility] 09/17/16 9:11pm 09/17/16 11: 18pm DANIELA CONTEH DO Recent Diagnosis
[2016-10-27] MEDS ORDERED: ALPH600C7 PO (15:39)
[2016-10-27] MEDS ORDERED: GABA-338 PO (15:39)
[2016-10-27] MEDS ORDERED: LISI-621 PO (15:39)
[2016-10-27] MEDS ORDERED: ATOR20TA PO (15:41)
[2016-10-27] MEDS ORDERED: ACET-62 PO (15:42)
--- OUTSIDE RECORDS SUMMARY | 2016-10-27 16:27 | XMS REPORT | Continuity of Care Document ---
Author Author [facility] Organization [facility] Address Unknown Phone Unavailable Allergies [...] Status Pt. Type Provider Facility Loc./Unit Complaint [id number] 10/11/2016 14:02:00 2016 15:16:00 DIS Emergency Hunter Hernandez DO [facility] [id number] 09/20/2016 20:35:00 2016 21:29:00 DIS Emergency Shawna GARAY, Yani [facility]
[2016-10-27] MEDS ORDERED: HYDROMORPHONE 2mg/ml INJECTION IM ONE (16:45)
[2016-10-27] MEDS ORDERED: ORPHENADRINE 60mg/2ml INJECTION IM ONE (16:45)
--- NOTE | 2016-10-27 16:48 | ERPDOC ---
Departure Disposition Decision Date: Oct 27, 2016 Disposition Decision Time: 16:46 Disposition: 01 DISCHARGED HOME, SELF-CARE Impression Impression Impression: Primary Impression: Sciatica of left side Condition: Stable Seen By: Mid-level only Referrals: OTHER (PCP) LACEY OWENS MD Follow up as soon as possible for pain management. Patient Instructions: Sciatica (ED) Problems/Meds/Labs Reviewed?: Yes Medications reviewed and manag: Yes Follow up care ordered?: Yes Mental Status: Alert, Oriented Scripts Cyclobenzaprine HCl (Cyclobenzaprine HCl) 10 Mg Tablet 1 TAB PO TID for MUSCLE SPASM, #15 TAB Prov: CARLOS PADILLA TRAINING MANAGER 10/27/16 HPI - Back Pain General Chief Complaint: Low Back Pain or Injury Stated Complaint: SCIATIC PAIN LEFT SIDE Time Seen by Provider: 16:22 Source: patient Exam Limitations: no limitations HPI - Back Pain Initial Comments Patient is presenting today with complaints of lower back pain with radiation down left buttock area Patient has a history of chronic pain; states has recently moved here from [place] and is getting established with a PCP and pain management doctor. Reports delay with coverage is due to getting coverage transferred from [place] to [place] and he has been seen [facility] and is awaiting to be seen at [facility] in [place]. I discussed with patient the option of using a steroid to help with inflammation which may be the source of his discomfort but patient states that he has diabetes and cannot use steroids. Blood sugar today is 146. Occurred At: home Onset/Timing: Constant Duration: other (weeks ) Severity/Quality: moderate, severe Location: lumbar spine Radiation: buttocks (left ), upper legs (left) Method of Injury/Context: unknown, other (chronic ) Associated Sypmtoms: lower back pain, muscle spasms, DENIES: fever, loss of bladder control, loss of bowel control, numbness in legs/feet, sensory/motor loss, tingling in legs/feet, weakness Hx of Similar Symptoms: Yes Allergies: Coded Allergies: amitriptyline (Verified Allergy, Unknown, 11/01/16) duloxetine (Verified Allergy, Unknown, 11/01/16) ketorolac (Verified Allergy, Unknown, 11/01/16) pregabalin (Verified Allergy, Unknown, 11/01/16) Past History Past Medical History Metabolic: diabetes, hypertension Cardiac: CAD Neurological: neuropathy Musculoskeletal: back pain Surgical History General: hernia, other Joint: other Social History Alcohol Intake: occasionally Sexuality: female partner Current Occupational Status: unemployed Review of Systems Constitutional Constitutional: see HPI, DENIES: chills, fever Eyes General: DENIES: burning, itching Lids/Accessories: DENIES: erythema, swelling ENMT Ears: DENIES: drainage, erythema, foreign body, other, pain, see HPI Hearing: DENIES: tinnitus Balance: DENIES: vertigo Mouth/Throat: DENIES: scratchy throat, sore throat Cardiovascular Cardiac: DENIES: chest pain, orthopnea Pulmonary Respiratory: DENIES: cough, dyspnea, pleuritic chest pain GI Upper Abdomen: DENIES: nausea, pain Lower Abdomen: DENIES: diarrhea, pain General: DENIES: burning, dysuria, frequency, pain, urgency Integumentary Skin: DENIES: itching, rash Neurological General: DENIES: change in strength, headache, numbness, syncope, weakness Hematologic/Lymphatic Hematologic/Lymphatic: DENIES: easy bruising All other Systems All Other Systems: Reviewed and Negative Physical Exam General Vitals and Pain Weight: Kilograms: 101.100 Height (feet): 6 Height (inches): 3.00 Triage Pain Scale: Normal Exams: Head: Normocephalic w/o trauma Eyes: Pupils are PERRLA w/ EOMI, No scleral icterus, irritation, or foreign bodies noted Neck: Full range of motion, without adenopathy, JVD, bruits or thyromegaly Chest/Resp: Clear all raymundo, with good airflow, and symmetry bilaterally CV: Regular rate and rhythm, without murmur or gallop, Pulses 2+ all extremities, capillary refill, <2 seconds all ext., no pedal edema noted Abdomen: Bowel sounds positive, soft, non-tender, non-distended, no hepatosplenomegaly, masses or bruits noted Lymphatic: No lymphadenopathy, or lymphedema noted Integumentary: No rashes, hives, or bruising noted, hair and nails, without abnormality Neurologic: Patient is alert, and oriented, cranial nerves, motor/sensory/ cerebellar, exams w/o gross deficits, to observation Psychiatric: Patient exhibits, appropriate attention, emotion and affect Musculoskeletal (brief) Musculoskeletal Brief: FOUND: spasm, tenderness, NOT FOUND: deformity, loss of motion Comments discomfort to lower back and down left buttock. No weakness ; no loss of sensation Differential Diagnoses Considering: Aortic Dissection, Disc Herniation, Compression Fracture, Fracture , Lumbar Sprain, Lumbar Strain, Pyelonephritis, Renal Colic, Retroperitoneal Hemorrhag, UTI, Volvulus Progress Results/Orders Orders Procedure Category Date Status Time Orphenadrine (Norflex) PHA 10/27/16 Complete 16:45 Hydromorphone PHA 10/27/16 Complete (Dilaudid) 16:45 Blood Glucose DAPHNEY 10/27/16 Complete Assessment Bgm 16:48 Methylprednisolone PHA 10/27/16 Complete Acetate (Depo-Medrol) 17:00 Lab Results Laboratory Tests Test 10/27/16 17:03 Glucometer 149mg/dL Medications Current ED Medications Orphenadrine Citrate (Norflex) 60 mg O ONCE IM Last administered on 10/27/16 16:59; Start 10/27/16 at 16:45; Stop 10/27/16 at 16:46; Status DC Hydromorphone HCl (Dilaudid) 1 mg O ONCE IM Last administered on 10/27/16 16: 59; Start 10/27/16 at 16:45; Stop 10/27/16 at 16:46; Status DC Methylprednisolone Acetate (Depo-Medrol) 80 mg O ONCE IM Last administered on 10/27/16 17:01; Start 10/27/16 at 17:00; Stop 10/27/16 at 17:01; Status DC Progress Progress patient given steroid injection. Is aware that the ER is not going to be able to provide chronic pain med and he states understanding No neurological deficits CARLOS PADILLA APRN Oct 27, 2016 16:48
[2016-10-27] MEDS ORDERED: MethylPREDNISolone ACETATE 80mg/1ml IM ONE (17:00)
[2016-10-27] MEDS ORDERED: CYCL-375 PO (17:08)
[2016-10-27] MEDS ORDERED: ACET1TAB25 PO (17:08)
[2016-10-27 17:13] VITALS: BP 114/74; PULSE 123; RESP 20; TEMP 98.8; O2SAT 96
== END 2016-10-27 17:13 | disposition home or self-care (01) ==
LOC: ED 15:12
DX: M54.42 Lumbago with sciatica, left side (principal); E11.9 Type 2 diabetes mellitus without complications; Z79.84 Long term (current) use of oral hypoglycemic drugs
CPT/HCPCS: 82948; 96372; 99283; J1040; J1170; J2360

== ENCOUNTER 2016-11-01 17:32 | Emergency (ER) | payer SELFPAY ==
[~2016-11-01] VITALS: Ht 190.5 cm; Wt 100.3 kg
[~2016-11-01 17:32] MED LIST changes: +ACET-62 PO; +ACET1TAB25 PO; +ALPH600C7 PO; +ATOR20TA PO; +CYCL-375 PO; -GABA-329 PO; +GABA-338 PO; -GLIM1TAB2 PO; -HYDR-4078 PO; +LISI-621 PO; -LISI10TA7 PO; -PRED20TA PO; -THIO50CA PO
[2016-11-01 17:35] VITALS: Ht 190.5 cm; Wt 100.3 kg
--- OUTSIDE RECORDS SUMMARY | 2016-11-01 17:37 | XMS REPORT ---
Author Sarah Fenton Organization [facility] Address [address] [place] [address] Care Team Providers Care Risk Mgr Name Role Phone Sarah Patel Unavailable [phone] PROBLEMS Type Condition ICD9-CM Code [id number] Code Onset Dates Condition Status SNOMED Code Problem Essential (primary) hypertension I10 Active 84873138 Problem Lumbago with sciatica, left side M54.42 Active 83970745 Assessment Type 2 diabetes mellitus without complications E11.9 Oct, Active 070275306 ALLERGIES Substance Reaction Event Type Date Status Elavil Unable to control hand movement Drug Allergy Oct, Active Lyrica Hand swelling Drug Allergy Oct, Active Ketorolac Tromethamine HIVES Drug Allergy Oct, Active Cymbalta Unable to control hand movement Drug Allergy Oct, Active SOCIAL HISTORY No smoking Hx information available PLAN OF CARE Activity Details Pending Test COMPREHENSIVE METABOLIC PANEL Pending Test TSH W/REFLEX TO FT4 Pending Test CBC (INCLUDES DIFF/PLT) Pending Test MICROALBUMIN, RANDOM URINE (W/CREATININE) Pending Test LIPID PANEL WITH REFLEX TO DIRECT LDL 2 Weeks for BP check, 3 Months for med check, prn,Reason: VITAL SIGNS Height 73 in 2016-10-27 Weight 221lb 8oz lbs 2016-10-27 BMI 29.22 kg/m2 2016-10-27 Heart Rate 128 /min 2016-10-27 Temperature 98.2 degrees Fahrenheit 2016-10-27 Blood pressure systolic 155 mm Hg 2016-10-27 Blood pressure diastolic 110 mm Hg 2016-10-27 MEDICATIONS Medication Instructions Dosage Frequency Start Date End Date Duration Status Tradjenta 5 MG Orally Once a day 1 tablet 24h Oct, 90 days Active Metformin HCl 1000 MG Orally Twice a day 1 tablet with meals 12h 90 days Active Gabapentin 300 MG Orally Three times a day 3 capsule 8h 30 days Active Aspir-81 81 MG Orally Once a day 1 tablet 24h Active Lisinopril 20 MG Orally Once a day 1 tablet 24h 90 days Active RESULTS No Results PROCEDURES Procedure Date Ordered Related Diagnosis Body Site COMPREHEN METABOLIC PANEL October 27, 2016 ASSAY OF URINE CREATININE October 27, 2016 COMPLETE CBC W/AUTO DIFF WBC October 27, 2016 MICROALBUMIN, QUANTITATIVE October 27, 2016 Office Visit, New Pt., Level 3 October 27, 2016 ASSAY THYROID STIM HORMONE October 27, 2016 IMMUNIZATIONS No Known Immunizations
--- OUTSIDE RECORDS SUMMARY | 2016-11-01 17:38 | XMS REPORT ---
Author Author Sarah Patel [facility] Address [address] [place] [address] Care Team Providers Care Anesthesiologist Assistant Certified Name Role Phone Sarah Patel Unavailable [phone] PROBLEMS Type Condition ICD9-CM Code [id number] Code Onset Dates Condition Status SNOMED Code Problem Essential (primary) hypertension I10 Active 43054023 Problem Lumbago with sciatica, left side M54.42 Active 07421435 Assessment Abnormal results of liver function studies R94.5 Oct, Active 548556758 Assessment Elevated white blood cell count, unspecified D72.829 Oct, Active 112325519 ALLERGIES Unknown Allergies SOCIAL HISTORY No smoking Hx information available PLAN OF CARE VITAL SIGNS MEDICATIONS Unknown Medications RESULTS No Results PROCEDURES No Known procedures IMMUNIZATIONS No Known Immunizations
--- OUTSIDE RECORDS SUMMARY | 2016-11-01 17:38 | XMS REPORT | Continuity of Care Document ---
Author Author [facility] Organization [facility] Address Unknown Phone Unavailable Care Team Providers Care Biomedical Technician Name Role Phone OTHER Primary Care Physician [phone] Insurance Providers Guarantor Bárbara Cantu [address] [facility] [address] [place] [id number] Email DENIED 10-27-16 Payer Medicaid Out Of State Policy Number [id number] Subscriber's Name Bárbara Cantu Relationship 18 Self Advance Directives Directive Response Recorded Date/Time Advanced Directives Type None 10/27/16 3:15pm Chief Complaint and Reason for Visit Chief Complaint Low Back Pain or Injury Reason for Visit Sciatica of left side Problems Active Problems Medical Problem Onset Date Status Sciatica of left side Unknown Acute Past Problems Medical Problem Onset Date Degenerative disc disease, lumbar Unknown Diabetic neuropathy Unknown 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 Unknown Diabetic neuropathy associated with type 2 diabetes mellitus Unknown Neuropathy Unknown Sciatica Unknown Sciatica of left side Unknown Medications Current Home Medications Medication Dose Units Route Directions Days Qty Instructions Start Date Acetaminophen 500 Mg Tablet 1,000 Mg Oral Every 8 Hours as needed for Pain 10/27/16 Acetaminophen With Codeine (Acetaminophen-Cod #3 Tablet) 300-30 Tablet 1 Tab Oral Every 6 Hr Prn for Pain 15 Tablet 10/27/16 Alpha Lipoic Acid 600 Mg Capsule 600 Mg Oral Twice A Day 10/27/16 Atorvastatin Calcium (Lipitor) Unknown Strength Tablet Unknown Dose Oral Bedtime 10/27/16 Cyclobenzaprine Hcl 10 Mg Tablet 1 Tab Oral Three Times A Day for Muscle Spasm 15 Tablet 10/27/16 Gabapentin 300 Mg Capsule 900 Mg Oral Three Times A Day 10/27/16 Lisinopril 20 Mg Tablet 20 Mg Oral Daily 10/27/16 Metformin Hcl 1,000 Mg Tablet 1,000 Mg Oral Twice Daily With Meals 10/11/16 Past Home Medications Medication Directions Ordered Status Gabapentin 300 Mg Capsule, 3 Cap Oral Three Times A Day 09/17/16 Discontinued Social History Social History Problem Response Recorded Date/Time Onset Date Status Hx Substance Use No 10/27/2016 3:29pm Not Applicable Not Applicable Hx Alcohol Use Yes 10/27/2016 3:29pm Not Applicable Not Applicable Query Response Start Date Stop Date Smoking Status Current every day smoker Hospital Discharge Instructions No hospital discharge instructions. Plan of Care Discharge Date 10/27/16 5:13pm Disposition 01 DISCHARGED HOME, SELF-CARE Condition at Discharge Stable Instructions/Education Provided Sciatica (ED) Prescriptions See Medication Section Referrals OTHER Note: LACEY OWENS MD Address: [address] [place] [id number] Note: Follow up as soon as possible for pain management. Functional Status No functional status results. Allergies, Adverse Reactions, Alerts Allergen Type Severity Reaction Status Last Updated Amitriptyline Allergy Unknown Active 10/11/16 Ketorolac Allergy Unknown Active 10/11/16 Duloxetine Allergy Unknown Active 10/11/16 Pregabalin Allergy Unknown Active 10/11/16 Immunizations Query Response on File Recorded Date/Time DTaP Vaccine History 201510/27/16 3:29pm Influenza Vaccine Hx 201610/27/16 3:29pm Tdap Vaccine Hx 201510/18/16 9:52pm Vital Signs Acute Vital Signs Vital Response Date/Time Temperature (Fahrenheit) 98.8 deg F (96.8 - 99.1) 10/27/2016 5:13pm Temperature (Calculated Celsius) 37.19430 degrees C (36.0 - 37.3) 10/27/2016 5:13pm Pulse Rate (adult) 123 bpm (60 - 100) 10/27/2016 5:13pm Respiratory Rate 20 breaths/min (10 - 20) 10/27/2016 5:13pm O2 Sat by Pulse Oximetry 96 % (90 - 100) 10/27/2016 5:13pm Blood Pressure 114/74 mm Hg 10/27/2016 5:13pm Height (Feet) 6 feet 10/27/2016 3:15pm Height (Inches) 3.00 inches 10/27/2016 3:15pm Weight (Kilograms) 101.100 kg 10/27/2016 3:15pm Body Mass Index (BMI) 27.0 10/27/2016 3:15pm Results Laboratory Results Test Name Result Units Flags Reference Collection Date/Time Result Date/ Time Comments Glucometer 149 mg/dL H 75-110 10/27/2016 5:03pm 10/27/2016 5:07pm Procedures Procedure Status Date Provider(s) Emergency dept visit Completed 09/17/16 Ther/proph/diag inj sc/im Completed 10/05/16 Ther/proph/diag inj sc/im Completed 10/05/16 Emergency dept visit Completed 10/05/16 441019"INJECTION, HYDROMORPHONE, UP TO 4 MG" Completed 10/05/16 330794"INJECTION, PROMETHAZINE HCL, UP TO 50 MG" Completed 10/05/16 Emergency dept visit Completed 10/11/16 Ther/proph/diag inj sc/im Completed 10/18/16 Emergency dept visit Completed 10/18/16 456368"INJECTION, HYDROMORPHONE, UP TO 4 MG" Completed 10/18/16 Encounters Encounter Location Arrival/Admit Date Discharge/Depart Date Attending Provider Departed Emergency Room [facility] 10/27/16 3:12pm 10/27/16 5: 13pm ENRIQUE STARK MD Departed Emergency Room [facility] 10/18/16 9:03pm 10/18/16 11: 44pm ROME KIM MD Departed Emergency Room [facility] 10/11/16 9:41pm 10/11/16 10: 50pm DANIELA CONTEH DO Departed Emergency Room [facility] 10/05/16 6:40am 10/05/16 8: 10am MARGARETH SOSA MD Departed Emergency Room [facility] 09/17/16 9:11pm 09/17/16 11: 18pm DANIELA CONTEH DO Recent Diagnosis
--- OUTSIDE RECORDS SUMMARY | 2016-11-01 17:38 | XMS REPORT | Continuity of Care Document ---
Author Author [facility] Organization [facility] Address Unknown Phone Unavailable Allergies Active [...] Status Pt. Type Provider Facility Loc./Unit Complaint [id number] 10/11/2016 14:02:00 2016 15:16:00 DIS Emergency Hunter Hernandez DO [facility] [id number] 09/20/2016 20:35:00 2016 21:29:00 DIS Emergency Yani Matos MD [facility] [id number] 10/23/2016 12:24:00 Document Registration
[2016-11-01] MEDS ORDERED: LINA5TAB PO (17:59)
[2016-11-01] MEDS ORDERED: ASPI-557 PO (17:59)
--- NOTE | 2016-11-01 18:01 | NUR ---
PROVIDER DR KIM IN TO SEE PATIENT.
--- NOTE | 2016-11-01 18:10 | ERPDOC ---
Departure Disposition Decision Date: Nov 01, 2016 Disposition Decision Time: 18:13 Disposition: 01 DISCHARGED HOME, SELF-CARE Impression Impression Impression: Primary Impression: Opioid dependence Substance use status: uncomplicated Qualified Codes: F11.20 - Opioid dependence, uncomplicated Additional Impression: Chronic pain Chronic pain type: chronic pain syndrome Qualified Codes: G89.4 - Chronic pain syndrome Severity: Severe Condition: Improved Seen By: Physician only Referrals: OTHER (PCP) BRENDAN NEWSOME (Family) Patient Instructions: Opioid Pain Management (ED) Problems/Meds/Labs Reviewed?: Yes Medications reviewed and manag: Yes Additional Instructions: Take an anti-inflammatory of your choice such as ibuprofen 800 mg 4 times a day or Aleve 2 tablets twice daily for baseline pain control Use Murray 5 mg one tablet up to 4 times daily as needed for severe pain only [facility] for any ongoing [facility] needs until you're established with pain management Be clear, you will NOT receive any prescriptions for narcotic medications through the ER again. Follow up care ordered?: Yes Mental Status: Alert, Oriented Scripts Hydrocodone/Acetaminophen (Murray 5-325 Tablet) 5-325 Tablet 1 TAB PO QID Y for PAIN, #60 Prov: ROME KIM MD 11/01/16 HPI - Back Pain General Chief Complaint: Lower Extremity Pain Stated Complaint: SCIASTIC PAIN Time Seen by Provider: 17:55 Source: patient Exam Limitations: no limitations HPI - Back Pain Initial Comments Pt presents with persistent sciatica and out of his pain medications. Pt had followed up with [facility] and was given one small Rx for Murray, then referred to [facility] Under[facility]. [facility]y Underwood is referring Pt to pain management but pt has to wait to get his [place] medical card before pain management will see him. Occurred At: home Onset/Timing: Rapid Associated Sypmtoms: DENIES: fever, loss of bladder control, loss of bowel control, lower back pain, muscle spasms, numbness in legs/feet, sensory/motor loss, tingling in legs/feet, weakness Hx of Similar Symptoms: Yes Allergies: Coded Allergies: amitriptyline (Verified Allergy, Unknown, 11/01/16) duloxetine (Verified Allergy, Unknown, 11/01/16) ketorolac (Verified Allergy, Unknown, 11/01/16) pregabalin (Verified Allergy, Unknown, 11/01/16) Past History Past Medical History Metabolic: diabetes, hypertension Cardiac: CAD Neurological: neuropathy Musculoskeletal: back pain Surgical History General: hernia, other Joint: other Social History Smoking Status: Current every day smoker Alcohol Intake: occasionally Sexuality: female partner Current Occupational Status: unemployed Review of Systems Constitutional Constitutional: DENIES: appetite decrease, appetite increase, chills, dizziness , fever, weakness ENMT Ears: DENIES: pain Hearing: DENIES: hearing loss, tinnitus Balance: DENIES: vertigo Mouth/Throat: DENIES: change in swallowing, change in voice, hoarsness, painful swallowing, sore throat Cardiovascular Cardiac: DENIES: chest pain, dyspnea on exertion Rhythm/Rate: DENIES: irregular beat, palpitations, tachycardia Vascular: DENIES: pedal edema Pulmonary Respiratory: DENIES: cough, dyspnea, pleuritic chest pain GI Upper Abdomen: DENIES: dysphagia, heartburn/indigestion, nausea, pain, vomiting Lower Abdomen: DENIES: blood in stool, constipation, diarrhea, pain Musculoskeletal General: pain, tenderness, DENIES: cramps, joint pain, joint swelling, weakness Integumentary Skin: DENIES: rash, sores Neurological General: DENIES: headache, numbness, tingling, vertigo, weakness Physical Exam General General Nourishment: well nourished, well developed, appears stated age, no acute distress General Body Habitus: well groomed Vitals and Pain First Documented Vital Signs Date Time Temp Pulse Resp B/P Pulse Ox O2 Delivery O2 Flow Rate FiO2 11/01/16 17:35 98.7 119 16 157/87 94 Room Air Weight: Kilograms: 100.300 Height (feet): 6 Height (inches): 3.00 Triage Pain Scale: RN VS reviewed by Provider: Yes Normal Exams: Head: Normocephalic w/o trauma Eyes: Pupils are PERRLA w/ EOMI, No scleral icterus, irritation, or foreign bodies noted ENMT: No facial trauma, nasal exudates, pharyngeal erythema, or exudates are noted Neck: Full range of motion, without adenopathy, JVD, bruits or thyromegaly Chest/Resp: Clear all raymundo, with good airflow, and symmetry bilaterally CV: Regular rate and rhythm, without murmur or gallop, Pulses 2+ all extremities, capillary refill, <2 seconds all ext., no pedal edema noted Abdomen: Bowel sounds positive, soft, non-tender, non-distended, no hepatosplenomegaly, masses or bruits noted Lymphatic: No lymphadenopathy, or lymphedema noted Integumentary: No rashes, hives, or bruising noted, hair and nails, without abnormality Neurologic: Patient is alert, and oriented, cranial nerves, motor/sensory/ cerebellar, exams w/o gross deficits, to observation Psychiatric: Patient exhibits, appropriate attention, emotion and affect Musculoskeletal (brief) Musculoskeletal Brief: FOUND: tenderness (sciatica, with sciatic tenderness.), NOT FOUND: deformity, loss of motion, spasm Progress Results/Orders Orders Procedure Category Date Status Time Dexamethasone Inj PHA 11/01/16 Verified (Decadron) 18:15 Hydromorphone PHA 11/01/16 Verified (Dilaudid) 18:15 Progress Progress Patient is given strict instructions that this will be his LAST ER prescription for pain medications for any reason. Patient has been seen 9 times since he's been in the state in the last 6 weeks and various ERs all for the same complaints, all for narcotic prescriptions. I instructed the patient that due to his significant drooling difficulties and financial constraints, we would extend him a prescription for 60 Murray today, this should more than cover the next 2 weeks of therapy for the patient according to his use. One injection of Dilaudid and dexamethasone here in the ER for pain, and patient is instructed to follow-up with his new primary care physician at [facility], or [facility] and complaints. PT IS NOT TO RECEIVE NARCOTIC PRESCRIPTIONS FOR ANY REASON FROM THE ER. ROME KIM MD Nov 01, 2016 18:10
[2016-11-01] MEDS ORDERED: HYDROMORPHONE 2mg/ml INJECTION IM ONE (18:15)
[2016-11-01] MEDS ORDERED: DEXAMETHASONE 4mg/ml - 1ml INJECTION IM ONE (18:15)
[2016-11-01] MEDS ORDERED: HYDR-4246 PO (18:15)
[2016-11-01 18:26] VITALS: BP 157/87; PULSE 71; RESP 16; TEMP 98.7; O2SAT 100
--- OUTSIDE RECORDS SUMMARY | 2016-11-01 18:34 | XMS REPORT | Continuity of Care Document ---
Author Author [facility] Organization [facility] Address Unknown Phone Unavailable Allergies Active [...] Status Pt. Type Provider Facility Loc./Unit Complaint [id number] 10/11/2016 14:02:00 2016 15:16:00 DIS Emergency Hunter Hernandez DO [facility] [id number] 09/20/2016 20:35:00 2016 21:29:00 DIS Emergency Yani Matos MD [facility] [id number] 10/23/2016 12:24:00 Document Registration
== END 2016-11-01 18:30 | disposition home or self-care (01) ==
LOC: ED 18:29
DX: M54.30 Sciatica, unspecified side (principal); G89.4 Chronic pain syndrome; F11.20 Opioid dependence, uncomplicated
CPT/HCPCS: 96372